=== PATIENT | male | born 1990 | race Caucasian/White ===

== ENCOUNTER 2020-09-23 13:47 | Emergency (ER) | payer OTHER | END 2020-09-23 14:06 | disposition home or self-care (01) | LOC: JVIRT 13:47 | DX: Z11.59 Encounter for screening for other viral diseases (principal) | CPT/HCPCS: C9803; Q3014-GT; U0003 ==

== ENCOUNTER 2021-01-20 15:38 | Emergency (ER) | payer OTHER ==
[2021-01-21 07:08] LABS: SARS-CoV-2 NAA Not Detected (Not Detected)
== END 2021-01-20 16:05 | disposition home or self-care (01) ==
LOC: JVIRT 15:38
DX: Z20.822 Contact with and (suspected) exposure to COVID-19 (principal)
CPT/HCPCS: C9803; G2251-GT; U0003; U0005